=== PATIENT | male | born 1975 | race Two or more races ===

== ENCOUNTER 2016-11-04 20:28 | Observation (INO) | payer OTHER ==
[2016-11-04 20:54] VITALS: BP 126/84; PULSE 100; RESP 20; TEMP 98; O2SAT 99
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
== END 2016-11-05 03:35 | disposition home or self-care (01) ==
LOC: H.ER 20:28 → H.EROBSV 21:56
PROVIDERS: ADMIT Emergency Medicine; ATTEND Emergency Medicine
DX: F43.20 Adjustment disorder, unspecified (principal); F10.229 Alcohol dependence with intoxication, unspecified; Y90.8 Blood alcohol level of 240 mg/100 ml or more; S40.812A Abrasion of left upper arm, initial encounter; S40.811A Abrasion of right upper arm, initial encounter; Y35.93XA Legal intervention, means unspecified, suspect injured, initial encounter; Y93.9 Activity, unspecified; Y92.9 Unspecified place or not applicable

== ENCOUNTER 2016-11-17 18:07 | Observation (INO) | payer SELFPAY ==
[2016-11-17 18:10] VITALS: BP 138/90; PULSE 80; RESP 18; TEMP 97.7; O2SAT 100
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
--- NOTE | 2016-11-18 04:28 | ED PDOC ---
- ECG O2 Sat by Pulse Oximetry: 100 (RA) Pulse Ox Interpretation: Normal Medical Decision Making Medical Decision Making: Pt endorsed pending sobriety. Pt monitored in ER overnight. Pt sleeping comfortable. 0425 - Pt with clear speech and steady gait. Disposition - Clinical Impression Clinical Impression: Alcohol abuse with intoxication - POA Present On Arrival: None - Disposition Disposition: Routine/Home Disposition Time: 04:28 Condition: STABLE
== END 2016-11-18 06:10 | disposition home or self-care (01) ==
LOC: H.ER 18:07 → H.EROBSV 19:00
PROVIDERS: ADMIT Emergency Medicine; ATTEND Emergency Medicine
DX: F10.129 Alcohol abuse with intoxication, unspecified (principal)
CPT/HCPCS: 82948; 99283; G0378; G0480

== ENCOUNTER 2016-11-29 13:10 | Observation (INO) | payer OTHER ==
[2016-11-29 13:13] VITALS: BMI 27.3
--- NOTE | 2016-11-29 13:24 | ED PDOC ---
HPI: Psych/Substance Abuse Time Seen by Provider: 11/29/16 13:22 Chief Complaint (Nursing): Alcohol Ingestion Chief Complaint (Provider): etoh History Per: Patient Additional Complaint(s): Patient arrives via ambulance for evaluation of acute alcohol intoxication. Patient admits to drinking today and states that he drinks every day. Eyes any fall and offers no acute medical or psychiatric complaints. Past Medical History Reviewed: Historical Data, Nursing Documentation, Vital Signs Vital Signs: Last Vital Signs Temp 98.2 F 11/29/16 13:13 Pulse 100 H 11/29/16 13:13 Resp 19 11/29/16 13:13 BP 134/77 11/29/16 13:13 Pulse Ox 96 11/29/16 13:13 - Medical History PMH: No Chronic Diseases - Surgical History Surgical History: No Surg Hx - Family History Family History: States: No Known Family Hx - Social History Current smoker - smoking cessation education provided: No Alcohol: > 2 Drinks/Day Drugs: Denies - Allergies Allergies/Adverse Reactions: Allergies Allergy/AdvReac Type Severity Reaction Status Date / Time No Known Allergies Allergy Verified 11/29/16 13:15 Review of Systems ROS Statement: Except As Marked, All Systems Reviewed And Found Negative Constitutional: Negative for: Fever Cardiovascular: Negative for: Chest Pain Respiratory: Negative for: Cough Gastrointestinal: Negative for: Nausea, Vomiting Psych: Positive for: Other (etoh) Physical Exam - Reviewed Nursing Documentation Reviewed: Yes - Physical Exam Appears: Positive for: Well, Non-toxic, No Acute Distress Eye Exam: Positive for: Normal appearance Cardiovascular/Chest: Positive for: Regular Rate, Rhythm Respiratory: Positive for: Normal Breath Sounds. Negative for: Respiratory Distress Neurologic/Psych: Positive for: Alert, Other (intoxicated, answers some questions appropriately) - Laboratory Results Result Diagrams: 11/29/16 13:38 11/29/16 13:38 - ECG O2 Sat by Pulse Oximetry: 96 Pulse Ox Interpretation: Normal Medical Decision Making Medical Decision Making: Impression: Acute etoh intoxication. Plan: Admit to ED observation CBC CMP BAL UDS ED OBSERVATION Date of observation admission: 11/29/16 Time of observation admission: 13:50 - Observation admission statement Patient is being placed in observation because:: Acute etoh intoxication, rule out concomitant drug abuse - Goals of Observation Goals of observation are:: Monitor vital signs and airway while acutely intoxicated. - Progress Note Progress Note: 11/29/16 15:20 BAL is 467. Patient is asleep, vital signs are stable, no resp distress or airway compromise, will continue to monitor 11/29/16 18:00 Patient walked to bathroom, has steady gait, he is awake and alert. Patient is stable for discharge. Disposition - Clinical Impression Clinical Impression: Alcohol abuse with intoxication - Patient ED Disposition Is Patient to be Admitted: No - Disposition Disposition: Routine/Home Disposition Time: 18:51 Condition: FAIR Results - Lab Results Lab Results: 11/29/16 11/29/16 13:38 13:38 WBC 8.5 RBC 4.42 Hgb 13.8 Hct 40.4 MCV 91.4 MCH 31.2 H MCHC 34.2 RDW 14.4 Plt Count 171 MPV 7.3 Neut % (Auto) 65.6 Lymph % (Auto) 28.6 [place] % (Auto) 5.1 Eos % (Auto) 0.4 Baso % (Auto) 0.3 Neut # 5.6 Lymph # 2.4 [place] # 0.4 Eos # 0.0 Baso # 0.0 Sodium 148 Potassium 3.6 Chloride 105 Carbon Dioxide 24 Anion Gap 23 H BUN 7 L Creatinine 0.7 L Est GFR ( Amer) > 60 Est GFR (Non-Af Amer) > 60 Random Glucose 142 H Calcium 9.4 Total Bilirubin 0.4 AST 70 H ALT 59 Alkaline Phosphatase 116 Total Protein 8.1 Albumin 4.7 Globulin 3.4 Albumin/Globulin Ratio 1.4 Alcohol, Quantitative 467 H*
[2016-11-29 13:49] LABS: BASO % 0.3 % (0.0-2.0); EOS % 0.4 % (0.0-4.0); HEMATOCRIT 40.4 % (35.0-51.0); LYMPH # 2.4 K/uL (1.0-4.3); LYMPH % 28.6 % (20.0-40.0); MEAN CELL VOLUME 91.4 fl (80.0-94.0); MEAN CORPUSCULAR HEMOGLOBIN 31.2 pg (27.0-31.0); MEAN CORPUSCULAR HGB CONC 34.2 g/dL (33.0-37.0); MEAN PLATELET VOLUME 7.3 fl (7.2-11.7); MONO # 0.4 K/uL (0.0-0.8); MONO % 5.1 % (0.0-10.0); NEUT # 5.6 K/uL (1.8-7.0); NEUT % 65.6 % (50.0-75.0); NRBC % 0.1 % (0.0-0.0); RED CELL DISTRIBUTION WIDTH 14.4 % (11.5-14.5); WHITE BLOOD COUNT 8.5 K/uL (4.8-10.8)
[2016-11-29 14:03] LABS: ALB/GLOB RATIO 1.4 (1.0-2.1); ALKALINE PHOSPHATASE 116 U/L (38-126); ALT/SGPT 59 U/L (21-72); AST/SGOT 70 U/L (17-59); BILIRUBIN,TOTAL 0.4 mg/dl (0.2-1.3); BLOOD UREA NITROGEN 7 mg/dl (9-20); CALCIUM 9.4 mg/dL (8.4-10.2); CARBON DIOXIDE 24 mmol/L (22-30); CHLORIDE 105 mmol/L (98-107); GFR AFRICAN-AMERICAN > 60; GLUCOSE,RANDOM 142 mg/dL (75-110); POTASSIUM 3.6 MMOL/L (3.6-5.0); SODIUM 148 mmol/l (132-148); TOTAL PROTEIN 8.1 G/DL (6.3-8.2)
[2016-11-29 14:13] LABS: ALCOHOL SERUM 467 mg/dl (0-10)
[2016-11-29 18:40] VITALS: BP 124/77; PULSE 94; RESP 16; TEMP 98
[2016-11-29 18:49] VITALS: O2SAT 96
== END 2016-11-29 18:52 | disposition home or self-care (01) ==
LOC: H.ER 13:10 → H.EROBSV 13:49
PROVIDERS: ADMIT Emergency Medicine; ATTEND Emergency Medicine
DX: F10.129 Alcohol abuse with intoxication, unspecified (principal); Y90.8 Blood alcohol level of 240 mg/100 ml or more

== ENCOUNTER 2016-12-08 20:22 | Observation (INO) | payer SELFPAY ==
[2016-12-08 20:22] VITALS: BMI 27.3
[2016-12-08 20:29] VITALS: O2SAT 99
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
[2016-12-08] MEDS ORDERED: TDAP Vaccine 0.5 mL Syr IM ONE (20:51)
--- NOTE | 2016-12-09 01:22 | ED PDOC ---
- ECG O2 Sat by Pulse Oximetry: 99 (RA) Pulse Ox Interpretation: Normal Medical Decision Making Medical Decision Making: Time: 0000 Transfer of Care from [facility] CHRISTINA 0305 Sleeping comfortably. Easily arousable. Pending Sobriety Scribe Attestation: Documented by Leti Rodriguez, acting as a scribe for Kpi Jeronimo PA-C MD Scribe Attestation: All medical record entries made by the Scribe were at my direction and personally dictated by me. I have reviewed the chart and agree that the record accurately reflects my personal performance of the history, physical exam, medical decision making, and the department course for this patient. I have also personally directed, reviewed, and agree with the discharge instructions and disposition. Disposition - Clinical Impression Clinical Impression: Alcohol intoxication - POA Present On Arrival: None - Disposition Disposition: Routine/Home Disposition Time: 00:00 Condition: IMPROVED
[2016-12-09 05:35] VITALS: BP 127/76; PULSE 108; RESP 16; TEMP 98.4
== END 2016-12-09 06:00 | disposition home or self-care (01) ==
LOC: H.ER 20:22 → H.EROBSV 20:37
PROVIDERS: ADMIT Emergency Medicine; ATTEND Emergency Medicine
DX: F10.129 Alcohol abuse with intoxication, unspecified (principal); Y90.8 Blood alcohol level of 240 mg/100 ml or more
CPT/HCPCS: 82948; 90471; 90715; 99282; G0378; G0480

== ENCOUNTER 2016-12-09 15:34 | Observation (INO) | payer SELFPAY ==
[2016-12-09 15:35] VITALS: BMI 27.3
[2016-12-09 15:39] VITALS: TEMP 97.2
--- NOTE | 2016-12-09 16:38 | ED PDOC ---
HPI: Psych/Substance Abuse Time Seen by Provider: 12/09/16 15:56 Chief Complaint (Nursing): Alcohol Ingestion Chief Complaint (Provider): intoxication Additional Complaint(s): 41yo M in ED very well know to ED for intoxication. bought to ED via EMS for clinical intoxication. was seen in ED last night and d/c this AM. pt with very slurred speech, unstable gait and alcohol on breath. Past Medical History Reviewed: Historical Data, Nursing Documentation, Vital Signs Vital Signs: Last Vital Signs Temp 97.2 F L 12/09/16 15:37 Pulse 113 H 12/09/16 15:37 Resp 20 12/09/16 15:37 BP 159/90 H 12/09/16 15:37 Pulse Ox 98 12/09/16 15:37 - Medical History PMH: Denies: Diabetes, Hepatitis, HIV, HTN, Seizures, Sexually Transmitted Disease - Family History Family History: States: Unknown Family Hx - Immunization History Hx Tetanus Toxoid Vaccination: No (unknown) - Allergies Allergies/Adverse Reactions: Allergies Allergy/AdvReac Type Severity Reaction Status Date / Time No Known Allergies Allergy Verified 11/29/16 13:15 Review of Systems ROS Statement: Except As Marked, All Systems Reviewed And Found Negative Review Of Systems: ROS cannot be obtained secondary to pt's inabilty to answer questions. Physical Exam - Reviewed Nursing Documentation Reviewed: Yes Vital Signs Reviewed: Yes - Physical Exam Appears: Positive for: No Acute Distress. Negative for: Non-toxic (intoxicated) Head Exam: Positive for: ATRAUMATIC, NORMAL INSPECTION, NORMOCEPHALIC Skin: Positive for: Normal Color, Warm, DRY Eye Exam: Positive for: Nystagmus. Negative for: PERRL (dilated) ENT: Positive for: Normal ENT Inspection Cardiovascular/Chest: Positive for: Regular Rate, Rhythm Respiratory: Positive for: CNT, Normal Breath Sounds Neurologic/Psych: Positive for: Alert, Oriented. Negative for: Gait (unstable) - ECG O2 Sat by Pulse Oximetry: 98 - Progress ED Course And Treament: pt requires 1:1 due to intoxication and concern for pt welfare and safety. ED OBSERVATION Date of observation admission: 12/09/16 Time of observation admission: 16:38 - Observation admission statement Patient is being placed in observation because:: intoxication - Goals of Observation Goals of observation are:: sobriety Disposition - Disposition Condition: FAIR
[2016-12-09 19:33] VITALS: RESP 16
--- NOTE | 2016-12-09 21:52 | ED PDOC ---
- ECG O2 Sat by Pulse Oximetry: 95 - Progress ED Course And Treament: Signed out to me pending sobriety. 2000 Sleeping comfortably. No distress. 0000 No distress. 0330 Seen walking to bathroom with steady unassisted gait. Clinically sober. Disposition - Clinical Impression Clinical Impression: Alcohol intoxication - POA Present On Arrival: None - Disposition Disposition: Routine/Home Disposition Time: 03:46 Condition: IMPROVED
[2016-12-10 04:24] VITALS: BP 125/80; PULSE 75; O2SAT 98
== END 2016-12-10 04:37 | disposition home or self-care (01) ==
LOC: H.ER 15:34 → H.EROBSV 16:38
PROVIDERS: ADMIT Emergency Medicine; ATTEND Emergency Medicine
DX: F10.129 Alcohol abuse with intoxication, unspecified (principal); Y90.9 Presence of alcohol in blood, level not specified
CPT/HCPCS: 82948; 99282; G0378

== ENCOUNTER 2016-12-14 20:07 | Emergency (ER) | payer SELFPAY ==
[2016-12-14 20:07] VITALS: BMI 27.3
[2016-12-14 20:12] VITALS: PULSE 97; RESP 18; TEMP 97.9; O2SAT 100
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
== END 2016-12-14 20:25 | disposition home or self-care (01) ==
LOC: H.ER 20:07
DX: F10.129 Alcohol abuse with intoxication, unspecified (principal)

== ENCOUNTER 2016-12-18 15:15 | Observation (INO) | payer SELFPAY ==
[2016-12-18 15:18] VITALS: BP 150/94; TEMP 98.7; O2SAT 98
[2016-12-18 15:21] VITALS: BMI 21.4
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
[2016-12-18 15:47] VITALS: RESP 20
[2016-12-18 19:48] VITALS: PULSE 92
== END 2016-12-18 23:21 | disposition home or self-care (01) ==
LOC: H.ER 15:15 → H.EROBSV 17:12
PROVIDERS: ADMIT Emergency Medicine; ATTEND Emergency Medicine
DX: F10.129 Alcohol abuse with intoxication, unspecified (principal); Z59.0 Homelessness; Z78.1 Physical restraint status; Y90.8 Blood alcohol level of 240 mg/100 ml or more; R00.0 Tachycardia, unspecified; R26.81 Unsteadiness on feet; R47.81 Slurred speech
CPT/HCPCS: 99284; G0378; G0480

== ENCOUNTER 2016-12-22 15:24 | Observation (INO) | payer SELFPAY ==
[2016-12-22 15:24] VITALS: BMI 21.4
[2016-12-22 15:31] VITALS: TEMP 98.3
--- NOTE | 2016-12-22 17:02 | ED PDOC ---
HPI: Psych/Substance Abuse Time Seen by Provider: 12/22/16 15:33 Chief Complaint (Nursing): Alcohol Ingestion Chief Complaint (Provider): ETOH History Per: Patient History/Exam Limitations: no limitations Onset/Duration Of Symptoms: Hrs Current Symptoms Are (Timing): Still Present Modifying Factor(s): Alcohol Additional Complaint(s): Chepe Dawson, a 41 year old male, is brought in by the EMS for alcohol intoxication. History is limited due to patients intoxicated state. The EMS state, that the patient appeared to be intoxicated and unable to stand up. The patient is well known to the ED and admits to consuming alcohol. Past Medical History Reviewed: Historical Data, Nursing Documentation, Vital Signs Vital Signs: Last Vital Signs Temp 98.3 F 12/22/16 15:29 Pulse 91 H 12/22/16 15:29 Resp 14 12/22/16 15:29 BP 118/67 12/22/16 15:29 Pulse Ox 96 12/22/16 15:29 - Medical History PMH: Denies: Diabetes, Hepatitis, HIV, HTN, Seizures, Sexually Transmitted Disease - Family History Family History: States: Unknown Family Hx - Immunization History Hx Tetanus Toxoid Vaccination: No (unknown) - Home Medications Home Medications: Ambulatory Orders Medication Instructions Recorded No Known Home Med 12/22/16 - Allergies Allergies/Adverse Reactions: Allergies Allergy/AdvReac Type Severity Reaction Status Date / Time No Known Allergies Allergy Verified 12/22/16 15:29 Review of Systems Review Of Systems: ROS cannot be obtained secondary to pt's inabilty to answer questions. (History is limited due to patient's intoxicated state.) Physical Exam - Reviewed Nursing Documentation Reviewed: Yes Vital Signs Reviewed: Yes - Physical Exam Appears: Positive for: Non-toxic, No Acute Distress Head Exam: Positive for: ATRAUMATIC, NORMOCEPHALIC Skin: Positive for: Normal Color, Warm, Dry Eye Exam: Positive for: Normal appearance, EOMI, PERRL ENT: Positive for: Normal ENT Inspection Neck: Positive for: Normal, Painless ROM, Supple Cardiovascular/Chest: Positive for: Regular Rate, Rhythm, Chest Non Tender. Negative for: Tachycardia Respiratory: Positive for: Normal Breath Sounds. Negative for: Wheezing, Respiratory Distress Gastrointestinal/Abdominal: Positive for: Normal Exam, Bowel Sounds, Soft. Negative for: Tenderness Back: Positive for: Normal Inspection Extremity: Positive for: Normal ROM. Negative for: Tenderness, Deformity, Swelling Neurologic/Psych: Positive for: Alert, Oriented - ECG O2 Sat by Pulse Oximetry: 96 (RA) Pulse Ox Interpretation: Normal Medical Decision Making Medical Decision Makin:33 Initial Impression: 41 year old male presenting with ETOH intoxication Initial Plan: * Alcohol Serum * Admit 15:44 Scribe Attestation Documented by Clarissa Taylor acting as a scribe for Kip Jeronimo PA-C. Scribe Attestation All medical record entries made by the Scribe were at my direction and personally dictated by me. I have reviewed the chart and agree that the record accurately reflects my personal performance of the history, physical exam, medical decision making, and the department course for this patient. I have also personally directed, reviewed, and agree with the discharge instructions and disposition. ED OBSERVATION Date of observation admission: 12/22/16 Time of observation admission: 15:44 - Observation admission statement Patient is being placed in observation because:: Pending sobriety. - Progress Note Progress Note: 12/22/16 14:14 FSBS: 124 ETOH 527 12/22/16 18:24 Sleeping comfortably. Easily arousable. 12/22/16 20:02 Pt. sleeping and easily arousable. Offers no complaints. 12/22/16 23:05 No distress. No changes. Disposition - Clinical Impression Clinical Impression: Alcohol abuse with intoxication - Patient ED Disposition Is Patient to be Admitted: Transfer of Care (Signed out to Chaz VASQUEZ pending sobriety.) - Disposition Disposition Time: 00:00 Condition: STABLE
[2016-12-22 21:57] VITALS: BP 124/72; PULSE 81; RESP 18
[2016-12-22 23:03] VITALS: O2SAT 96
--- NOTE | 2016-12-23 01:47 | ED PDOC ---
- ECG O2 Sat by Pulse Oximetry: 96 (RA) Medical Decision Making Medical Decision Making: Case endorsed to administrative underwriter from CHRISTINA Jeronimo at midnight pending sobriety HPI: Psych/Substance Abuse Time Seen by Provider: 12/22/16 15:33 Chief Complaint (Nursing): Alcohol Ingestion Chief Complaint (Provider): ETOH History Per: Patient History/Exam Limitations: no limitations Onset/Duration Of Symptoms: Hrs Current Symptoms Are (Timing): Still Present Modifying Factor(s): Alcohol Additional Complaint(s): Chepe Dawson, a 41 year old male, is brought in by the EMS for alcohol intoxication. History is limited due to patients intoxicated state. The EMS state, that the patient appeared to be intoxicated and unable to stand up. The patient is well known to the ED and admits to consuming alcohol. ETOH 527 at 1610 Upon my eval, Pt asleep in NAD. Arousable to verbal stimuli. 0300, Pt arousable to verbal stimuli. Got out of bed and able to ambulate when asked. Monitored in ED overnight. stable for discharge in am Disposition - Clinical Impression Clinical Impression: Alcohol abuse with intoxication - POA Present On Arrival: None - Disposition Disposition: Routine/Home Disposition Time: 05:15 Condition: STABLE
== END 2016-12-23 05:00 | disposition home or self-care (01) ==
LOC: H.ER 15:24 → H.EROBSV 15:44
PROVIDERS: ADMIT Emergency Medicine; ATTEND Emergency Medicine
DX: F10.129 Alcohol abuse with intoxication, unspecified (principal); Y90.8 Blood alcohol level of 240 mg/100 ml or more
CPT/HCPCS: 82948; 99283; G0378; G0480

== ENCOUNTER 2016-12-24 15:27 | Observation (INO) | payer SELFPAY ==
[2016-12-24 15:28] VITALS: BMI 21.4
--- NOTE | 2016-12-24 15:57 | ED PDOC ---
HPI: Psych/Substance Abuse Time Seen by Provider: 12/24/16 15:45 Chief Complaint (Nursing): Alcohol Ingestion Chief Complaint (Provider): alcohol ingestion History Per: Patient, EMS History/Exam Limitations: no limitations Onset/Duration Of Symptoms: Unknown Additional Complaint(s): Chepe Dawson is a 41 year old male, with no previous medical history, who presents to the ED via EMS after he was found intoxicated on the streets. Patient reports drinking "a lot". He denies any medical complaints at this time. Past Medical History Reviewed: Historical Data, Nursing Documentation, Vital Signs Vital Signs: Last Vital Signs Temp 96.8 F L 12/24/16 15:28 Pulse 109 H 12/24/16 15:28 Resp BP 159/96 H 12/24/16 15:28 Pulse Ox 96 12/24/16 15:28 - Medical History PMH: No Chronic Diseases Denies: Diabetes, Hepatitis, HIV, HTN, Seizures, Sexually Transmitted Disease - Family History Family History: States: Unknown Family Hx - Immunization History Hx Tetanus Toxoid Vaccination: No (unknown) - Home Medications Home Medications: Ambulatory Orders Medication Instructions Recorded No Known Home Med 12/22/16 - Allergies Allergies/Adverse Reactions: Allergies Allergy/AdvReac Type Severity Reaction Status Date / Time No Known Allergies Allergy Verified 12/22/16 15:29 Review of Systems ROS Statement: Except As Marked, All Systems Reviewed And Found Negative (no medical complaints) Physical Exam - Reviewed Nursing Documentation Reviewed: Yes Vital Signs Reviewed: Yes - Physical Exam Appears: Positive for: Well, Non-toxic, No Acute Distress Head Exam: Positive for: ATRAUMATIC (no signs of head injury ), NORMAL INSPECTION, NORMOCEPHALIC Skin: Positive for: Normal Color, Warm, Dry Cardiovascular/Chest: Positive for: Regular Rate, Rhythm Respiratory: Positive for: CNT, Normal Breath Sounds Extremity: Positive for: Normal ROM (of all extremities) Neurologic/Psych: Positive for: Alert, Oriented (to person, place and events ), Other (slow to respond, appears intoxicated ). Negative for: Facial Droop - ECG O2 Sat by Pulse Oximetry: 96 (RA) Pulse Ox Interpretation: Normal Medical Decision Making Medical Decision Making: Initial Impression: Intoxicated Initial Plan: * ED obs * reevaluation Scribe Attestation: Documented by Gloria Ashford, acting as a scribe for Jose Riojas PA-C. Provider Scribe Attestation: All medical record entries made by the Scribe were at my direction and personally dictated by me. I have reviewed the chart and agree that the record accurately reflects my personal performance of the history, physical exam, medical decision making, and the department course for this patient. I have also personally directed, reviewed, and agree with the discharge instructions and disposition. ED OBSERVATION Date of observation admission: 12/24/16 Time of observation admission: 15:54 - Observation admission statement Patient is being placed in observation because:: Intoxication - Goals of Observation Goals of observation are:: Clinical sobriety - Progress Note Progress Note: 12/24/16 20:36 Patient is progressively getting clinically sober and requesting a meal. Steady gait noted. Disposition - Clinical Impression Clinical Impression: Alcohol ingestion - Patient ED Disposition Is Patient to be Admitted: No - Disposition Disposition: Routine/Home Condition: FAIR
[2016-12-25 00:39] VITALS: BP 119/86; TEMP 98.2
[2016-12-25 01:15] VITALS: PULSE 88; RESP 16; O2SAT 97
== END 2016-12-24 23:17 | disposition home or self-care (01) ==
LOC: H.ER 15:27 → H.EROBSV 15:54
PROVIDERS: ADMIT Emergency Medicine; ATTEND Emergency Medicine
DX: F10.129 Alcohol abuse with intoxication, unspecified (principal); Y90.8 Blood alcohol level of 240 mg/100 ml or more
CPT/HCPCS: 36415; 82948; 99283; G0378; G0480

== ENCOUNTER 2016-12-29 19:22 | Emergency (ER) | payer SELFPAY ==
[2016-12-29 19:22] VITALS: BMI 21.4
[2016-12-29 19:31] VITALS: TEMP 98.3; O2SAT 98
--- NOTE | 2016-12-29 20:30 | ED PDOC ---
HPI: General Adult Time Seen by Provider: 12/29/16 20:17 Chief Complaint (Nursing): Medical Clearance Chief Complaint (Provider): Alcohol abuse History Per: Patient History/Exam Limitations: no limitations Onset/Duration Of Symptoms: Days (Today) Additional Complaint(s): Pt. drinking vodka today from 6pm to time of coming to the ER. Pt. found in the street walking around. Did not fall or hit head. No injury. Denies drugs. No abd pain, nausea, vomit, weakness, dizziness. Is homeless. States all of his papers were taken away. Pt. denies suicidal or homicidal ideation. Under arrest. Past Medical History Reviewed: Nursing Documentation, Vital Signs Vital Signs: Last Vital Signs Temp 98.3 F 12/29/16 19:28 Pulse 89 12/29/16 19:28 Resp 20 12/29/16 19:28 BP 138/93 H 12/29/16 19:28 Pulse Ox 98 12/29/16 20:33 - Medical History PMH: Denies: Diabetes, Hepatitis, HIV, HTN, Seizures, Sexually Transmitted Disease - Surgical History Surgical History: No Surg Hx - Family History Family History: States: Unknown Family Hx - Social History Current smoker - smoking cessation education provided: No Alcohol: > 2 Drinks/Day Drugs: Denies - Immunization History Hx Tetanus Toxoid Vaccination: No (unknown) - Home Medications Home Medications: Ambulatory Orders Medication Instructions Recorded No Known Home Med 12/22/16 - Allergies Allergies/Adverse Reactions: Allergies Allergy/AdvReac Type Severity Reaction Status Date / Time No Known Allergies Allergy Verified 12/29/16 19:31 Review of Systems Constitutional: Negative for: Weakness Eyes: Negative for: Vision Change ENT: Negative for: Nose Congestion Cardiovascular: Negative for: Chest Pain Respiratory: Negative for: Shortness of Breath Gastrointestinal: Negative for: Nausea, Vomiting, Abdominal Pain Musculoskeletal: Negative for: Neck Pain, Shoulder Pain Skin: Negative for: Rash Neurological: Negative for: Weakness, Numbness, Headache Psych: Negative for: Depression, Suicidal ideation Physical Exam - Reviewed Nursing Documentation Reviewed: Yes Vital Signs Reviewed: Yes - Physical Exam Appears: Positive for: Non-toxic, No Acute Distress Head Exam: Positive for: ATRAUMATIC, NORMAL INSPECTION, NORMOCEPHALIC Skin: Positive for: Normal Color, Warm, DRY Eye Exam: Positive for: EOMI, Normal appearance, PERRL ENT: Positive for: Normal ENT Inspection Neck: Positive for: Normal, Painless ROM Cardiovascular/Chest: Positive for: Regular Rate, Rhythm Respiratory: Positive for: CNT, Normal Breath Sounds Gastrointestinal/Abdominal: Positive for: Normal Exam, Bowel Sounds, Soft. Negative for: Tenderness Back: Positive for: Normal Inspection. Negative for: L CVA Tenderness, R CVA Tenderness Extremity: Positive for: Normal ROM. Negative for: Tenderness, Pedal Edema Neurologic/Psych: Positive for: Alert, patent searcher II-XII, Oriented. Negative for: Motor/Sensory Deficits - ECG O2 Sat by Pulse Oximetry: 98 Pulse Ox Interpretation: Normal - Progress ED Course And Treament: 2339: Stable. AAOx3. Pain free. Pending sobriety and crisis eval. Dr. Bolden to take over care. Disposition - Clinical Impression Clinical Impression: Alcohol intoxication - Patient ED Disposition Is Patient to be Admitted: Transfer of Care - Disposition Disposition: Transfer of Care Disposition Time: 23:39 Condition: STABLE Patient Signed Over To: Lois Bolden
--- NOTE | 2016-12-30 00:24 | ED PDOC ---
- ECG O2 Sat by Pulse Oximetry: 98 (RA) Pulse Ox Interpretation: Normal Medical Decision Making Medical Decision Making: Time: 0000 Initial impression: ETOH Initial plan: --0000: Transfer of Care From Dr. Turner Pending Clinical Sobriety and Crisis Evaluation 0200 Pt is alert and awake. Ambulatory with steady gait. Pt is cleared by Psych. Dr Be. Scribe Attestation: Documented by Leti Rodriguez, acting as a scribe for Lois Bolden MD MD Scribe Attestation: All medical record entries made by the Scribe were at my direction and personally dictated by me. I have reviewed the chart and agree that the record accurately reflects my personal performance of the history, physical exam, medical decision making, and the department course for this patient. I have also personally directed, reviewed, and agree with the discharge instructions and disposition. Disposition Doctor Will See Patient In The: Office Counseled Patient/Family Regarding: Studies Performed, Diagnosis, Need For Followup - Clinical Impression Clinical Impression: Alcohol intoxication, Alcohol use disorder - POA Present On Arrival: None - Disposition Referrals: [facility] [Outside] Disposition: Routine/Home Disposition Time: 02:15 Condition: GOOD Additional Instructions: Pt is cleared medically and psychiatrically for incarceration. Instructions: Abuse of Alcohol (ED)
[2016-12-30 02:59] VITALS: BP 128/87; PULSE 81; RESP 17
== END 2016-12-30 02:59 ==
LOC: H.ER 19:22
DX: F10.129 Alcohol abuse with intoxication, unspecified (principal); Y90.8 Blood alcohol level of 240 mg/100 ml or more
CPT/HCPCS: 82948; 99282; G0480

== ENCOUNTER 2017-01-17 18:59 | Emergency (ER) | payer SELFPAY ==
[2017-01-17 18:59] VITALS: BMI 21.4
[2017-01-17 19:05] VITALS: BP 156/71; PULSE 60; RESP 16; TEMP 98; O2SAT 100
--- NOTE | 2017-01-17 19:09 | ED PDOC ---
HPI: General Adult Time Seen by Provider: 01/17/17 19:02 Chief Complaint (Nursing): Medical Clearance Chief Complaint (Provider): Denies complaint History Per: Patient History/Exam Limitations: no limitations Have you had recent travel within the past 21 days to any of the following countries: [place], [place], [place] or [place]?: No Additional Complaint(s): Pt was drinking in public and arrested because he had a warrent. PT brought in by police and walked in with steady gait. PT denies chest pain, SOB, headache, N //V. PT denies HI/SI. Pt denies psychiatric history. Pt cooperative in ER. Past Medical History Vital Signs: Last Vital Signs Temp 98.0 F 01/17/17 19:00 Pulse 60 01/17/17 19:00 Resp 16 01/17/17 19:00 BP 156/71 H 01/17/17 19:00 Pulse Ox 100 01/17/17 19:00 - Medical History PMH: No Chronic Diseases Denies: Diabetes, Hepatitis, HIV, HTN, Seizures, Sexually Transmitted Disease - Surgical History Surgical History: No Surg Hx - Family History Family History: States: Unknown Family Hx - Living Arrangements Living Arrangements: With Family - Social History Current smoker - smoking cessation education provided: No Alcohol: > 2 Drinks/Day Drugs: Denies - Immunization History Hx Tetanus Toxoid Vaccination: No (unknown) - Home Medications Home Medications: Ambulatory Orders Medication Instructions Recorded No Known Home Med 12/22/16 - Allergies Allergies/Adverse Reactions: Allergies Allergy/AdvReac Type Severity Reaction Status Date / Time No Known Allergies Allergy Verified 12/29/16 19:31 Review of Systems ROS Statement: Except As Marked, All Systems Reviewed And Found Negative Constitutional: Negative for: Fever, Chills Cardiovascular: Negative for: Chest Pain Respiratory: Negative for: Cough, Shortness of Breath Psych: Negative for: Suicidal ideation, Withdrawal Physical Exam - Reviewed Nursing Documentation Reviewed: Yes Vital Signs Reviewed: Yes - Physical Exam Appears: Positive for: Well, Non-toxic, No Acute Distress Head Exam: Positive for: ATRAUMATIC, NORMAL INSPECTION, NORMOCEPHALIC Skin: Positive for: Normal Color, Warm, DRY Eye Exam: Positive for: Normal appearance ENT: Positive for: Normal ENT Inspection Neck: Positive for: Normal, Painless ROM Cardiovascular/Chest: Positive for: Regular Rate, Rhythm Respiratory: Positive for: Normal Breath Sounds. Negative for: Accessory Muscle Use, Respiratory Distress Gastrointestinal/Abdominal: Positive for: Normal Exam, Bowel Sounds, Soft Back: Positive for: Normal Inspection Extremity: Positive for: Normal ROM Neurologic/Psych: Positive for: Alert, Oriented, Gait (Steady), Other (Clear speech, no tremor) - ECG O2 Sat by Pulse Oximetry: 100 Pulse Ox Interpretation: Normal Disposition - Clinical Impression Clinical Impression: Alcohol abuse - Patient ED Disposition Is Patient to be Admitted: No Counseled Patient/Family Regarding: Diagnosis, Need For Followup - Disposition Disposition: Routine/Home Disposition Time: 19:05 Condition: GOOD Additional Instructions: Pt is medically and psychiatrically stable for incarceration. Instructions: Abuse of Alcohol (ED)
== END 2017-01-17 19:10 | disposition home or self-care (01) ==
LOC: H.ER 18:59
DX: F10.10 Alcohol abuse, uncomplicated (principal)

== ENCOUNTER 2017-03-30 18:05 | Observation (INO) | payer OTHER ==
[2017-03-30 18:05] VITALS: BMI 24.0
[2017-03-30 18:12] VITALS: TEMP 97.8
--- NOTE | 2017-03-30 19:10 | ED PDOC ---
HPI: General Adult Time Seen by Provider: 03/30/17 19:07 Chief Complaint (Nursing): Medical Clearance Chief Complaint (Provider): medical clearance Additional Complaint(s): 41yo M in ED for medical clearance ofr incarceration for disorderly conduct. Pt intoxicated. in ED sleeping form comfortably. Past Medical History Reviewed: Historical Data, Nursing Documentation, Vital Signs Vital Signs: Last Vital Signs Temp 97.8 F 03/30/17 18:10 Pulse 92 H 03/30/17 18:10 Resp 18 03/30/17 18:10 BP 133/98 H 03/30/17 18:10 Pulse Ox 98 03/30/17 19:15 - Medical History PMH: Denies: Diabetes, Hepatitis, HIV, HTN, Seizures, Sexually Transmitted Disease - Family History Family History: States: Unknown Family Hx - Immunization History Hx Tetanus Toxoid Vaccination: No - Home Medications Home Medications: Ambulatory Orders Medication Instructions Recorded No Known Home Med 12/22/16 - Allergies Allergies/Adverse Reactions: Allergies Allergy/AdvReac Type Severity Reaction Status Date / Time No Known Allergies Allergy Verified 03/30/17 18:09 Review of Systems ROS Statement: Except As Marked, All Systems Reviewed And Found Negative Review Of Systems: ROS cannot be obtained secondary to pt's inabilty to answer questions. Physical Exam - Reviewed Nursing Documentation Reviewed: Yes Vital Signs Reviewed: Yes - Physical Exam Appears: Positive for: Non-toxic, No Acute Distress Head Exam: Positive for: ATRAUMATIC, NORMAL INSPECTION, NORMOCEPHALIC Eye Exam: Positive for: EOMI, Normal appearance, PERRL Cardiovascular/Chest: Positive for: Regular Rate, Rhythm Respiratory: Positive for: CNT, Normal Breath Sounds Neurologic/Psych: Positive for: Alert, Other (intoxicated, but alert. ) - ECG O2 Sat by Pulse Oximetry: 98 - Progress ED Course And Treament: pt wilol get BAL and finger stick. ED OBSERVATION Date of observation admission: 03/30/17 Time of observation admission: 19:12 - Observation admission statement Patient is being placed in observation because:: intoxication-medical clearance, police has confirmed only medical clearance is req. Disposition - Clinical Impression Clinical Impression: Alcohol abuse with intoxication - Patient ED Disposition Is Patient to be Admitted: Transfer of Care - Disposition Disposition Time: 20:00 Condition: STABLE Forms: [employer] ([place]ian) Patient Signed Over To: Jose Riojas (pending clearance)
[2017-03-30 22:25] LABS: BASO # 0.1 K/uL (0.0-0.2); EOS % 0.9 % (0.0-4.0); HEMATOCRIT 40.2 % (35.0-51.0); LYMPH # 2.4 K/uL (1.0-4.3); LYMPH % 46.1 % (20.0-40.0); MEAN CELL VOLUME 96.2 fl (80.0-94.0); MEAN CORPUSCULAR HEMOGLOBIN 31.8 pg (27.0-31.0); MEAN CORPUSCULAR HGB CONC 33.1 g/dL (33.0-37.0); MEAN PLATELET VOLUME 6.6 fl (7.2-11.7); MONO # 0.4 K/uL (0.0-0.8); MONO % 7.6 % (0.0-10.0); NEUT # 2.4 K/uL (1.8-7.0); NEUT % 44.4 % (50.0-75.0); NRBC % 0.1 % (0.0-0.0); RED CELL DISTRIBUTION WIDTH 14.8 % (11.5-14.5); WHITE BLOOD COUNT 5.3 K/uL (4.8-10.8)
[2017-03-30 22:43] LABS: ALB/GLOB RATIO 1.3 (1.0-2.1); ALKALINE PHOSPHATASE 113 U/L (38-126); ALT/SGPT 33 U/L (21-72); AST/SGOT 52 U/L (17-59); BILIRUBIN,TOTAL 0.4 mg/dl (0.2-1.3); BLOOD UREA NITROGEN 9 mg/dl (9-20); CALCIUM 8.5 mg/dL (8.4-10.2); CARBON DIOXIDE 23 mmol/L (22-30); CHLORIDE 109 mmol/L (98-107); GFR AFRICAN-AMERICAN > 60; GLUCOSE,RANDOM 89 mg/dL (75-110); SODIUM 148 mmol/l (132-148); TOTAL PROTEIN 7.8 G/DL (6.3-8.2)
[2017-03-30 22:52] LABS: URINE BACTERIA RARE (<OCC); URINE BILIRUBIN NEGATIVE (NEGATIVE); URINE BLOOD NEGATIVE (NEGATIVE); URINE COLOR STRAW (YELLOW); URINE GLUCOSE (UA) NEG (Normal); URINE KETONE NEGATIVE (NEGATIVE); URINE LEUKOCYTE ESTERASE NEG Leu/uL (Negative); URINE PROTEIN NEGATIVE (NEGATIVE); URINE UROBILINOGEN 0.2-1.0 mg/dL (0.2-1.0)
[2017-03-30 22:53] LABS: RBC URINE 3 /hpf (0-3); WBC URINE 5 /hpf (0-5)
[2017-03-31 02:29] VITALS: BP 125/80; PULSE 75; RESP 16; O2SAT 97
--- NOTE | 2017-03-31 02:36 | ED PDOC ---
- Laboratory Results Result Diagrams: 03/30/17 22:20 03/30/17 22:20 - ECG O2 Sat by Pulse Oximetry: 97 - Progress ED Course And Treament: seen by crisis. cleared by Dr. espitia for d/c into police custody. Diagnosis Adjustment disorder Disposition - Clinical Impression Clinical Impression: Alcohol abuse with intoxication, Adjustment disorder - POA Present On Arrival: None - Disposition Disposition: Routine/Home Disposition Time: 02:35 Condition: STABLE
== END 2017-03-31 02:36 | disposition home or self-care (01) ==
LOC: H.ER 18:05 → H.EROBSV 22:18
PROVIDERS: ADMIT Emergency Medicine; ATTEND Emergency Medicine
DX: F10.129 Alcohol abuse with intoxication, unspecified (principal); Y90.8 Blood alcohol level of 240 mg/100 ml or more; F43.20 Adjustment disorder, unspecified
CPT/HCPCS: 80053; 80320; 80324; 80345; 80346; 80349; 80353; 80358; 80361; 81003; 82948; 83992; 85025; 99283; G0378

== ENCOUNTER 2017-06-21 23:12 | Emergency (ER) | payer SELFPAY ==
[2017-06-21 23:12] VITALS: BMI 24.0
[2017-06-21 23:22] VITALS: BP 130/87; PULSE 79; RESP 16; TEMP 98.9; O2SAT 99
--- NOTE | 2017-06-22 00:49 | ED PDOC ---
HPI: Psych/Substance Abuse Time Seen by Provider: 06/21/17 23:24 Chief Complaint (Nursing): Alcohol Ingestion History Per: Patient, Other (HPD) Additional Complaint(s): Pt. states he asked police to bring him to hospital as he does not want to stay in [facility] tonight. Pt. offers no complaints. Pt. is well known to ED with hx of ETOH abuse. Denies SI/HI, hallucinations. Past Medical History Reviewed: Historical Data, Nursing Documentation, Vital Signs Vital Signs: Last Vital Signs Temp 98.9 F 06/21/17 23:20 Pulse 79 06/21/17 23:20 Resp 16 06/21/17 23:20 BP 130/87 06/21/17 23:20 Pulse Ox 99 06/21/17 23:20 - Medical History PMH: Denies: Diabetes, Hepatitis, HIV, HTN, Seizures, Sexually Transmitted Disease - Family History Family History: States: Unknown Family Hx - Immunization History Hx Tetanus Toxoid Vaccination: No - Home Medications Home Medications: Ambulatory Orders Medication Instructions Recorded No Known Home Med 12/22/16 - Allergies Allergies/Adverse Reactions: Allergies Allergy/AdvReac Type Severity Reaction Status Date / Time No Known Allergies Allergy Verified 03/30/17 18:09 Review of Systems ROS Statement: Except As Marked, All Systems Reviewed And Found Negative Physical Exam - Reviewed Nursing Documentation Reviewed: Yes Vital Signs Reviewed: Yes - Physical Exam Appears: Positive for: Well, Non-toxic, No Acute Distress Head Exam: Positive for: ATRAUMATIC, NORMAL INSPECTION, NORMOCEPHALIC Skin: Positive for: Normal Color, Warm. Negative for: Rash Eye Exam: Positive for: EOMI, Normal appearance, PERRL ENT: Positive for: Normal ENT Inspection Neck: Positive for: Normal, Painless ROM Cardiovascular/Chest: Positive for: Regular Rate, Rhythm Respiratory: Positive for: CNT, Normal Breath Sounds Gastrointestinal/Abdominal: Positive for: Normal Exam, Bowel Sounds, Soft. Negative for: Tenderness Back: Positive for: Normal Inspection Extremity: Positive for: Normal ROM Neurologic/Psych: Positive for: Alert, Oriented. Negative for: Aphasia, Facial Droop - ECG O2 Sat by Pulse Oximetry: 99 Disposition - Clinical Impression Clinical Impression: Alcohol intoxication, Medical clearance for incarceration - Patient ED Disposition Is Patient to be Admitted: No - Disposition Disposition: Routine/Home Disposition Time: 00:30 Condition: STABLE Additional Instructions: Patient is medically and psychiatrically cleared for incarceration. Instructions: Abuse of Alcohol (ED) Forms: [employer] (Arabic)
== END 2017-06-22 02:58 ==
LOC: H.ER 23:12
DX: F10.129 Alcohol abuse with intoxication, unspecified (principal)

== ENCOUNTER 2017-07-20 15:31 | Emergency (ER) | payer SELFPAY ==
[2017-07-20 15:31] VITALS: BMI 24.0
--- NOTE | 2017-07-20 15:57 | ED PDOC ---
HPI: Psych/Substance Abuse Chief Complaint (Provider): Alcohol Ingestion History Per: Patient, EMS History/Exam Limitations: intoxication Onset/Duration Of Symptoms: Days (x today) Current Symptoms Are (Timing): Still Present Modifying Factor(s): Alcohol Additional Complaint(s): Chepe is a 42 year old male who presents to the emergency department via EMS for medical clearance. As per EMS, patient was found outside publicly intoxicated by bystander, and was unable to have balance gait. Patient is a well -known alcoholic to ED. Offers no complaints at this time. Patient is verbally abusive to staff. Attempted to strike provider. PMD: Provider TBD <Kip Jeronimo - Last Filed: 07/20/17 23:18> <Paulette Barrera PA-C - Last Filed: 07/21/17 04:16> Time Seen by Provider: 07/20/17 15:38 Chief Complaint (Nursing): Alcohol Ingestion Past Medical History Reviewed: Historical Data, Nursing Documentation, Vital Signs Vital Signs: Last Vital Signs Temp 99.2 F 07/20/17 15:32 Pulse 108 H 07/20/17 15:32 Resp 20 07/20/17 15:32 BP 143/91 H 07/20/17 15:32 Pulse Ox 100 07/20/17 15:32 - Medical History PMH: Denies: Diabetes, Hepatitis, HIV, HTN, Seizures, Sexually Transmitted Disease - Family History Family History: States: Unknown Family Hx - Immunization History Hx Tetanus Toxoid Vaccination: No <Kip Jeronimo - Last Filed: 07/20/17 23:18> Vital Signs: Last Vital Signs Temp 99.2 F 07/20/17 15:32 Pulse 83 07/20/17 21:05 Resp 16 07/20/17 21:05 BP 132/78 07/20/17 21:05 Pulse Ox 100 07/20/17 23:20 <Paulette Barrera PA-C - Last Filed: 07/21/17 04:16> - Home Medications Home Medications: Ambulatory Orders Medication Instructions Recorded No Known Home Med 12/22/16 - Allergies Allergies/Adverse Reactions: Allergies Allergy/AdvReac Type Severity Reaction Status Date / Time No Known Allergies Allergy Verified 03/30/17 18:09 Review of Systems Review Of Systems: ROS cannot be obtained secondary to pt's inabilty to answer questions. (Caveat: Intoxication) <PhaniKip E - Last Filed: 07/20/17 23:18> Physical Exam - Reviewed Nursing Documentation Reviewed: Yes Vital Signs Reviewed: Yes - Physical Exam Appears: Positive for: No Acute Distress Head Exam: Positive for: ATRAUMATIC, NORMAL INSPECTION, NORMOCEPHALIC Skin: Positive for: Normal Color Eye Exam: Positive for: Normal appearance ENT: Positive for: Normal ENT Inspection Neck: Positive for: Normal Cardiovascular/Chest: Positive for: Regular Rate, Rhythm Respiratory: Positive for: Normal Breath Sounds, Other (Alcohol on Breath noted) . Negative for: Respiratory Distress Gastrointestinal/Abdominal: Positive for: Normal Exam Back: Positive for: Normal Inspection Extremity: Positive for: Normal ROM Neurologic/Psych: Positive for: Gait (Unsteady), Other (Slurred speech) <PhaniKip - Last Filed: 07/20/17 23:18> - ECG O2 Sat by Pulse Oximetry: 100 (RA) Pulse Ox Interpretation: Normal <PhaniKip Carr - Last Filed: 07/20/17 23:18> Medical Decision Making Medical Decision Making: Time: 15:46 Plan: - Alcohol Serum - Ativan 2 mg IM - Haldol 5 mg IM STAT - 1:1 Observation - Glucose, Blood, POC - Restraint Time: 17:46 Sleeping comfortable with no distress. Easily arousable. 1929 No distress. Sleeping comfortably. 2134 Still sleeping. Arousable to tactile stimuli. 2349 Sleeping. No distress. Scribe Attestation: Documented by Francois Self, acting as a scribe for ARNALDO English Provider Scribe Attestation: All medical record entries made by the Scribe were at my direction and personally dictated by me. I have reviewed the chart and agree that the record accurately reflects my personal performance of the history, physical exam, medical decision making, and the department course for this patient. I have also personally directed, reviewed, and agree with the discharge instructions and disposition. <Kip Jeronimo - Last Filed: 07/20/17 23:18> Medical Decision Making: On reevaluation, the patient is awake, alert, oriented 3. Patient has no complaints at this time. Patient able to stand up on his own and is ambulating with steady gait. Patient is stable for discharge. <Pauletet Barrera PA-C - Last Filed: 07/21/17 04:16> Disposition - Patient ED Disposition Is Patient to be Admitted: Transfer of Care (Signed out to Bruce VASQUEZ pending sobriety.) - Disposition Disposition Time: 00:00 <Kip Jeronimo - Last Filed: 07/20/17 23:18> - Disposition Disposition: Routine/Home <Paulette Barrera PA-C - Last Filed: 07/21/17 04:16> - Clinical Impression Clinical Impression: Alcohol intoxication - Disposition Condition: STABLE Instructions: Alcohol Intoxication (ED) Forms: [employer] (Kazakh) - PA / REPLENISHER / Resident Statement MD/DO has reviewed & agrees with the documentation as recorded. <Paulette Barrera PA-C - Last Filed: 07/21/17 04:16>
[2017-07-21 04:15] VITALS: BP 127/68; PULSE 78; RESP 14; TEMP 98.1; O2SAT 98
== END 2017-07-21 04:31 | disposition home or self-care (01) ==
LOC: H.ER 15:31
DX: F10.129 Alcohol abuse with intoxication, unspecified (principal)
CPT/HCPCS: 80320; 82948; 96372; 99283; J1630; J2060

== ENCOUNTER 2017-12-09 14:18 | Emergency (ER) | payer OTHER, SELFPAY ==
[2017-12-09 14:18] VITALS: BMI 24.0
[2017-12-09] MEDS ORDERED: Sodium Chloride 0.9% 1,000 ML IV STA (15:03)
--- NOTE | 2017-12-09 15:06 | ED PDOC ---
HPI: General Adult Time Seen by Provider: 12/09/17 14:46 Chief Complaint (Nursing): Medical Clearance History Per: Other Onset/Duration Of Symptoms: Unknown Current Symptoms Are (Timing): Still Present Additional Complaint(s): Brought by [facility] for medical and psychiatric eval prior to incarceration. Pt admits to ETOH consumption earlier today. No c/o. Denies drug use or injury Past Medical History Vital Signs: Last Vital Signs Temp 98.7 F 12/09/17 23:49 Pulse 93 H 12/09/17 23:49 Resp 17 12/09/17 23:49 BP 142/81 12/09/17 23:49 Pulse Ox 97 12/09/17 23:49 - Medical History PMH: Denies: Diabetes, Hepatitis, HIV, HTN, Seizures, Sexually Transmitted Disease - Family History Family History: States: Unknown Family Hx - Immunization History Hx Tetanus Toxoid Vaccination: No - Home Medications Home Medications: Ambulatory Orders Medication Instructions Recorded No Known Home Med 12/22/16 - Allergies Allergies/Adverse Reactions: Allergies Allergy/AdvReac Type Severity Reaction Status Date / Time No Known Allergies Allergy Verified 03/30/17 18:09 Review of Systems ROS Statement: Except As Marked, All Systems Reviewed And Found Negative Physical Exam - Reviewed Nursing Documentation Reviewed: Yes Vital Signs Reviewed: Yes - Physical Exam Appears: Positive for: Non-toxic, No Acute Distress Head Exam: Positive for: ATRAUMATIC, NORMAL INSPECTION, NORMOCEPHALIC Skin: Positive for: Normal Color, Warm, DRY Eye Exam: Positive for: EOMI, Normal appearance, PERRL ENT: Positive for: Normal ENT Inspection Neck: Positive for: Normal, Painless ROM Cardiovascular/Chest: Positive for: Regular Rate, Rhythm Respiratory: Positive for: CNT, Normal Breath Sounds Gastrointestinal/Abdominal: Positive for: Normal Exam, Soft Back: Positive for: Normal Inspection Extremity: Positive for: Normal ROM Neurologic/Psych: Positive for: Alert (Slurring of words). Negative for: Motor/ Sensory Deficits - ECG O2 Sat by Pulse Oximetry: 99 Disposition - Clinical Impression Clinical Impression: Adjustment disorder, Alcohol ingestion - Patient ED Disposition Is Patient to be Admitted: Transfer of Care - Disposition Referrals: Alcoholics Anonymous [Outside] Disposition: Transfer of Care Disposition Time: 19:00 Condition: STABLE Additional Instructions: Patient is medically and psychiatrically cleared for incarceration. Instructions: Adjustment Disorder, Alcohol Abuse and Alcoholism (DC), General ( DC) Forms: [employer] (Frisian) Patient Signed Over To: Josesito De Anda
[2017-12-09 23:51] VITALS: BP 142/81; PULSE 93; RESP 17; TEMP 98.7
[2017-12-10 14:10] VITALS: O2SAT 99
== END 2017-12-10 01:58 ==
LOC: H.ER 14:18
DX: F43.20 Adjustment disorder, unspecified (principal); F10.10 Alcohol abuse, uncomplicated
CPT/HCPCS: 80320; 82948; 99282; J7030

== ENCOUNTER 2017-12-27 17:02 | Emergency (ER) | payer SELFPAY ==
[2017-12-27 17:02] VITALS: BMI 24.0
[2017-12-27 17:05] VITALS: TEMP 97.9
--- NOTE | 2017-12-27 17:44 | ED PDOC ---
HPI: Psych/Substance Abuse Time Seen by Provider: 12/27/17 17:17 Chief Complaint (Nursing): Alcohol Ingestion Chief Complaint (Provider): Alcohol Ingestion History Per: Patient History/Exam Limitations: intoxication Onset/Duration Of Symptoms: Mins Current Symptoms Are (Timing): Still Present Suicide/Self Injury Attempted (Context): None Modifying Factor(s): Alcohol Additional History Per: EMS, Law Enforcement Additional Complaint(s): 42 year old male brought in by EMS for alcohol intoxication. Patient is responsive to verbal stimuli. Patient admits to drinking. PMD: None Provided. Past Medical History Reviewed: Historical Data, Nursing Documentation, Vital Signs Vital Signs: Last Vital Signs Temp 97.9 F 12/27/17 17:03 Pulse 101 H 12/27/17 17:03 Resp 18 12/27/17 17:03 BP 141/86 12/27/17 17:03 Pulse Ox 97 12/27/17 17:03 - Medical History PMH: No Chronic Diseases Denies: Diabetes, Hepatitis, HIV, HTN, Seizures, Sexually Transmitted Disease - Surgical History Surgical History: No Surg Hx - Family History Family History: States: Unknown Family Hx - Social History Alcohol: > 2 Drinks/Day - Immunization History Hx Tetanus Toxoid Vaccination: No - Home Medications Home Medications: Ambulatory Orders Medication Instructions Recorded No Known Home Med 12/22/16 - Allergies Allergies/Adverse Reactions: Allergies Allergy/AdvReac Type Severity Reaction Status Date / Time No Known Allergies Allergy Verified 03/30/17 18:09 Review of Systems ROS Statement: Except As Marked, All Systems Reviewed And Found Negative Psych: Positive for: Other (EtOH intoxication ) Physical Exam - Reviewed Nursing Documentation Reviewed: Yes Vital Signs Reviewed: Yes - Physical Exam Appears: Positive for: No Acute Distress Head Exam: Positive for: ATRAUMATIC, NORMOCEPHALIC Skin: Positive for: Normal Color, Warm, Dry Eye Exam: Positive for: Normal appearance, EOMI, PERRL ENT: Positive for: Normal ENT Inspection Neck: Positive for: Normal, Painless ROM, Supple Cardiovascular/Chest: Positive for: Regular Rate, Rhythm. Negative for: Murmur Respiratory: Positive for: Normal Breath Sounds. Negative for: Respiratory Distress Gastrointestinal/Abdominal: Positive for: Normal Exam, Soft. Negative for: Tenderness Back: Positive for: Normal Inspection Extremity: Positive for: Normal ROM. Negative for: Pedal Edema, Deformity Neurologic/Psych: Positive for: Other (responsive to verbal stimuli ) - ECG O2 Sat by Pulse Oximetry: 97 (RA) Pulse Ox Interpretation: Normal Medical Decision Making Medical Decision Making: Time: 1739 Plan: -- Alcohol Serum -- Glucose, blood, POC 23:30 Pt AAOX3, steady gait. Scribe Attestation: Documented by Duy Osborne, acting as a scribe for Dr. Gloria Powell MD. Provider Scribe Attestation: All medical record entries made by the Scribe were at my direction and personally dictated by me. I have reviewed the chart and agree that the record accurately reflects my personal performance of the history, physical exam, medical decision making, and the department course for this patient. I have also personally directed, reviewed, and agree with the discharge instructions and disposition. Disposition - Clinical Impression Clinical Impression: Alcohol intoxication - Disposition Referrals: [facility] [Outside] Disposition: Routine/Home Disposition Time: 23:48 Condition: IMPROVED Instructions: Alcohol Abuse and Alcoholism (DC) Forms: [employer] (Turkmen)
[2017-12-27 23:19] VITALS: BP 136/81; PULSE 87; RESP 16
[2017-12-31 18:00] VITALS: O2SAT 97
== END 2017-12-27 23:52 | disposition home or self-care (01) ==
LOC: H.ER 17:02
DX: F10.129 Alcohol abuse with intoxication, unspecified (principal)
CPT/HCPCS: 99283; G0480

== ENCOUNTER 2018-05-14 16:48 | Emergency (ER) | payer OTHER ==
[2018-05-14 16:48] VITALS: BMI 24.0
--- NOTE | 2018-05-14 19:54 | ED PDOC ---
HPI: General Adult Time Seen by Provider: 05/14/18 17:00 Chief Complaint (Nursing): Medical Clearance Chief Complaint (Provider): Medical Clearance History/Exam Limitations: intoxication Additional Complaint(s): Chepe Dawson is a 42 year old male with no past medical history, who was brought to the emergency department accompanied by [place] [employer] for medical and psychiatric clearance for incarceration. Patient is seen to be un cooperative with history and he states that he was been drinking last night but is "fine". Patient otherwise refuses to answer further questions. He denies any fall or LOC and in general smells of alcohol. PMD: No provider Past Medical History Reviewed: Historical Data, Nursing Documentation, Vital Signs Vital Signs: Last Vital Signs Temp 98.5 F 05/14/18 16:52 Pulse 90 05/14/18 16:52 Resp 18 05/14/18 16:52 BP 164/90 H 05/14/18 16:52 Pulse Ox 100 05/14/18 16:52 - Medical History PMH: Denies: Diabetes, Hepatitis, HIV, HTN, Seizures, Sexually Transmitted Disease - Surgical History Surgical History: No Surg Hx - Family History Family History: States: Unknown Family Hx - Immunization History Hx Tetanus Toxoid Vaccination: No - Home Medications Home Medications: Ambulatory Orders Medication Instructions Recorded No Known Home Med 12/22/16 - Allergies Allergies/Adverse Reactions: Allergies Allergy/AdvReac Type Severity Reaction Status Date / Time No Known Allergies Allergy Verified 05/14/18 16:52 Review of Systems ROS Statement: Except As Marked, All Systems Reviewed And Found Negative Neurological: Negative for: Other (loss of consciousness ) Physical Exam - Reviewed Nursing Documentation Reviewed: Yes Vital Signs Reviewed: Yes - Physical Exam Head Exam: Positive for: ATRAUMATIC Eye Exam: Positive for: Conjunctival injection (bilateral) Cardiovascular/Chest: Positive for: Regular Rate, Rhythm. Negative for: Murmur Respiratory: Positive for: Normal Breath Sounds. Negative for: Respiratory Distress Neurologic/Psych: Positive for: Alert (arousable to verbal stimuli ) Comments: Uncooperative with PE - ECG O2 Sat by Pulse Oximetry: 100 (RA) Pulse Ox Interpretation: Normal Medical Decision Making Medical Decision Making: Initial Time: 18:26 Initial plan: --Alcohol Serum --Blood Glucose --Crisis evaluation --Finger stick Blood alcohol: 281 Blood glucose: 81 Crisis evaluation postponed until patient more sober. Re-evaluated at 00:30: patient c/o being shaky and stating that he has hx of seizures and DTs. that he needs Librium as he usually drinking 15 - 20beers per day. VS to be rechecked. Patient signed out to ALONDRA Wood pending medical and psych clearance for incarceration. Scribe Attestation: Documented by Wayne Heart, acting as a scribe for Fabiola Queen PA-C. Provider Scribe Attestation: All medical record entries made by the Scribe were at my direction and personally dictated by me. I have reviewed the chart and agree that the record accurately reflects my personal performance of the history, physical exam, medical decision making, and the department course for this patient. I have also personally directed, reviewed, and agree with the discharge instructions and disposition. Disposition - Clinical Impression Clinical Impression: Alcohol use disorder, Adjustment disorder - Disposition Disposition Time: 00:30 Condition: IMPROVED Additional Instructions: Patient medically and psychiatrically cleared for incarceration Instructions: Alcohol Use - When Is Drinking a Problem?, Adjustment Disorder
[2018-05-15 01:18] VITALS: TEMP 98.9
--- NOTE | 2018-05-15 01:29 | ED PDOC ---
- ECG O2 Sat by Pulse Oximetry: 96 - Progress ED Course And Treament: Case endorsed to technical writer and editor from Jonathon VASQUEZ pending crisis eval Patient evaluated by nursery worker and cleared for discharge as per Dr. Haile Johnson stable Librium PO given Disposition - Clinical Impression Clinical Impression: Alcohol use disorder, Adjustment disorder - POA Present On Arrival: None - Disposition Disposition: Discharged/Transfer to Law Enforcement Disposition Time: 01:27 Condition: IMPROVED Additional Instructions: Patient medically and psychiatrically cleared for incarceration Instructions: Adjustment Disorder, Alcohol Use - When Is Drinking a Problem?
[2018-05-15 04:34] VITALS: BP 114/62; PULSE 72; RESP 16; O2SAT 99
== END 2018-05-15 01:50 ==
LOC: H.ER 16:48
DX: F43.20 Adjustment disorder, unspecified (principal); F10.10 Alcohol abuse, uncomplicated